=== PATIENT | male | born 1965 | race Caucasian/White ===

== ENCOUNTER 2016-09-23 16:55 | Emergency (ER) | payer MEDICAID ==
[2016-09-23] MEDS ORDERED: Fluorescein 1 MG Ophth Strip EYERT ONE (17:17)
[2016-09-23 17:22] VITALS: BP 113/72
[2016-09-23] MEDS ORDERED: Polymyxin B/Trimethoprim 10 ML Bottle EYELF ONE (17:38)
[2016-09-23] MEDS ORDERED: Proparacaine 0.5% Ophth Soln 15 ML Bottle EYERT SCH (17:45)
--- NOTE | 2016-09-27 07:45 | ER ---
Date of Service: 09/23/2016 SUBJECTIVE: Oh presents to emergency room with complaints of right knee pain. He states that he rubbed his right and since that time, he has been experiencing some discomfort and blurriness to the right eye. He states that he has an implanted lens, which was performed many years ago. PAST MEDICAL HISTORY: 1. Pulmonary embolism. 2. DVT. 3. Anxiety. 4. Peripheral neuropathy. MEDICATIONS: 1. Warfarin 5 mg p.o. daily. 2. Elavil 75 mg p.o. daily. 3. Ambien 5 mg p.o. daily. 4. Neurontin 600 mg p.o. t.i.d. 5. Klonopin 1 mg p.o. t.i.d. ALLERGIES: 1. Codeine. 2. Voltaren. 3. Formaldehyde. 4. Tramadol. REVIEW OF SYSTEMS: Please see history of present illness. PHYSICAL EXAMINATION: General: This is a 50-year-old male patient, in no acute distress. Vital Signs: Temperature is 36.1, pulse rate is 67, blood pressure is 113/72, respiratory rate 16, O2 saturations 97%. Skin: Warm, pink, and dry. HEENT: Head is normocephalic, atraumatic. There is no funduscopic papilledema. Fluorescein examination reveals corneal abrasion at 6 o'clock position on the sclera approximately 3 cm in diameter. Remainder of his physical examination is within normal limits. ASSESSMENT: Corneal abrasion. PLAN: The patient will be discharged. Advised him to follow up in [facility] in the next several days for a slit-lamp examination. I did start him on Polytrim drops 1 drop every 3 hours to right eye. He is to return to the emergency room if he develops any acute vision loss or change. All questions were answered. PARVIZK: 09/27/2016 00:34:08 MODL: 09/27/2016 04:54:28 /[id number]
== END 2016-09-23 17:40 | disposition home or self-care (01) ==
LOC: VM.ED 16:55
DX: S05.01XA Injury of conjunctiva and corneal abrasion without foreign body, right eye, initial encounter (principal); F41.9 Anxiety disorder, unspecified; Z86.718 Personal history of other venous thrombosis and embolism; Z86.711 Personal history of pulmonary embolism; Z79.01 Long term (current) use of anticoagulants; Z79.899 Other long term (current) drug therapy; Z88.5 Allergy status to narcotic agent; Z88.8 Allergy status to other drugs, medicaments and biological substances; X58.XXXA Exposure to other specified factors, initial encounter
CPT/HCPCS: 99283; A9270

== ENCOUNTER 2017-09-01 23:55 | Emergency (ER) | payer MEDICAID ==
[2017-09-02 00:08] VITALS: BP 117/90
[2017-09-02] MEDS: Fluorescein 1 MG Ophth Strip EYERT ONE (00:20)
[2017-09-02] MEDS: Proparacaine 0.5% Ophth Soln 15 ML Bottle EYELF PRN (00:20)
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
[2017-09-02] MEDS: Polymyxin B/Trimethoprim 10 ML Bottle EYEBOTH ONE (00:30)
== END 2017-09-02 00:40 | disposition home or self-care (01) ==
LOC: VM.ED 23:55
DX: T15.01XA Foreign body in cornea, right eye, initial encounter (principal); F32.9 Major depressive disorder, single episode, unspecified; F41.9 Anxiety disorder, unspecified; Z88.5 Allergy status to narcotic agent; Z88.8 Allergy status to other drugs, medicaments and biological substances; Z79.899 Other long term (current) drug therapy
CPT/HCPCS: 65220; 99283

== ENCOUNTER 2022-04-21 11:44 | Emergency (ER) | payer MEDICARE, MEDICAID ==
[2022-04-21] MEDS ORDERED: diphenhydrAMINE 50 MG/ML SDV IM ONE (11:57)
[2022-04-21] MEDS ORDERED: methylPREDNISolone Sodium Succinate 125 MG/2 ML SDV IM ONE (11:57)
[2022-04-21 12:30] VITALS: BP 124/78; PULSE 84
== END 2022-04-21 12:39 | disposition home or self-care (01) ==
LOC: VM.ED 11:44
DX: L50.9 Urticaria, unspecified (principal); Z72.0 Tobacco use; Z88.5 Allergy status to narcotic agent; Z88.8 Allergy status to other drugs, medicaments and biological substances; Z79.01 Long term (current) use of anticoagulants; Z79.899 Other long term (current) drug therapy
CPT/HCPCS: 96372; 99282; J1200; J2930

== ENCOUNTER 2022-05-03 11:40 | Emergency (ER) | payer MEDICARE, MEDICAID ==
[2022-05-03 16:38] VITALS: BP 107/75; PULSE 106
== END 2022-05-03 12:19 | disposition home or self-care (01) ==
LOC: VM.ED 11:40
DX: L25.9 Unspecified contact dermatitis, unspecified cause (principal); Z88.5 Allergy status to narcotic agent; Z88.1 Allergy status to other antibiotic agents; Z72.0 Tobacco use
CPT/HCPCS: 99282; 99283

== ENCOUNTER 2022-08-04 12:30 | Emergency (ER) | payer MEDICARE, MEDICAID ==
[2022-08-04 14:13] VITALS: BP 146/101; PULSE 104
== END 2022-08-04 14:52 | disposition home or self-care (01) ==
LOC: VM.ED 12:30
DX: L29.9 Pruritus, unspecified (principal); Z88.5 Allergy status to narcotic agent; Z88.8 Allergy status to other drugs, medicaments and biological substances; Z72.0 Tobacco use
CPT/HCPCS: 99282; 99283